=== PATIENT | male | born 1930 | race Native Hawaiian/Other Pacific Islander ===

== ENCOUNTER 2017-02-15 09:34 | Outpatient (CLI) | payer OTHER ==
[~2017-02-15 09:34] MED LIST: PREVACID30 MG PO; TAMS0.4C PO
[2017-02-15 10:23] LABS: PLATELET COUNT 155 K/uL (142-355)
[2017-02-15 11:25] LABS: POTASSIUM 3.6 mmol/L (3.6-5.2); SODIUM 140 mmol/L (136-145)
[2017-02-16] MEDS ORDERED: CVS OMEPRAZOLE20 MG OR (04:39)
[2017-02-16] MEDS ORDERED: CARDURA4 MG PO (04:40)
[2017-02-16] MEDS ORDERED: FINASTERIDE5 MG PO (04:40)
[2017-02-16] MEDS ORDERED: ASA LOW DOSE81 MG OR (04:41)
== END 2017-02-15 19:48 | disposition home or self-care (01) ==
LOC: LABW 09:34
PROVIDERS: Internal Medicine
DX: R53.83 Other fatigue (principal)
CPT/HCPCS: 36415; 80053; 81000; 83735; 84439; 84443; 85027; 87086; 87088

== ENCOUNTER 2017-02-15 10:00 | Observation (INO) | payer OTHER ==
[2017-02-15] VITALS (7 sets, daily range): BP systolic 131–169; BP diastolic 73–82; TEMP 97.7–98.4; Ht 190.5 cm; Wt 91.8 kg
[~2017-02-15] VITALS: Ht 190.5 cm; Wt 91.8 kg
--- NOTE | 2017-02-15 15:48 | NUR ---
Pt. ADMITTED TO ROOM [address] ZAMUDIO. C/O WEAKNESS AND EDEMA LEG. Pt. HAS DRYNESS SKIN ON LEGS AND LONG TOES NAIL.
[2017-02-15 19:22] LABS: PLATELET COUNT 176 K/uL (142-355)
[2017-02-15 19:46] LABS: POTASSIUM 3.7 mmol/L (3.6-5.2); SODIUM 138 mmol/L (136-145)
[2017-02-16] VITALS: BP 142/65; TEMP 97.8
[2017-02-16 04:00] VITALS: BP 143/65; TEMP 97.2
[2017-02-16] MEDS ORDERED: CVS OMEPRAZOLE20 MG OR (04:39)
[2017-02-16] MEDS ORDERED: CARDURA4 MG PO (04:40)
[2017-02-16] MEDS ORDERED: FINASTERIDE5 MG PO (04:40)
[2017-02-16] MEDS ORDERED: ASA LOW DOSE81 MG OR (04:41)
[2017-02-16 05:15] LABS: PLATELET COUNT 162 K/uL (142-355)
[2017-02-16 05:31] LABS: POTASSIUM 3.1 mmol/L (3.6-5.2); SODIUM 137 mmol/L (136-145)
[2017-02-16 08:00] VITALS: BP 156/72; TEMP 97.9
[2017-02-16 12:00] VITALS: BP 134/66; TEMP 97.6
[2017-02-16 16:00] VITALS: BP 120/70; TEMP 97.4
[2017-02-16 20:00] VITALS: BP 149/70; TEMP 97.3
[2017-02-17] VITALS: BP 146/73; TEMP 97.8
[2017-02-17 04:00] VITALS: BP 152/74; TEMP 97.5
[2017-02-17 04:50] LABS: PLATELET COUNT 158 K/uL (142-355)
[2017-02-17 05:01] LABS: POTASSIUM 3.2 mmol/L (3.6-5.2); SODIUM 136 mmol/L (136-145)
[2017-02-17 08:00] VITALS: BP 149/75; TEMP 97.9
--- NOTE | 2017-02-17 13:00 | NUR ---
IV D/C'd. NO REDNESS OR EDEMA OBSERVED. DISCHARGE INSTRUCTIONS SIGNED AND GIVEN. Pt. EXIT OUT OF FRONT ENTRANCE VIA W/C.
== END 2017-02-17 13:00 | disposition home or self-care (01) ==
LOC: ED 10:00 → MED/SURG 13:44
PROVIDERS: Internal Medicine; ADMIT Specialist
DX: I50.23 Acute on chronic systolic (congestive) heart failure (principal); R53.1 Weakness; R62.7 Adult failure to thrive; R60.9 Edema, unspecified; E87.6 Hypokalemia; R53.83 Other fatigue
CPT/HCPCS: 36415; 36600; 80053; 81000; 82550; 82553; 82805; 83605; 83735; 83880; 84100; 84439; 84443; 84484; 85027; 85379; 85610; 85730; 87086; 87088; 93005; 93306; 96372; 96374; 96375; 99220; 99284; G0378; J1644; J1720; J1940; J2405

== ENCOUNTER 2017-02-21 14:29 | Outpatient (CLI) | payer OTHER ==
[~2017-02-21 14:29] MED LIST changes: +ASA LOW DOSE81 MG OR; +CARDURA4 MG PO; +CVS OMEPRAZOLE20 MG OR; +FINASTERIDE5 MG PO
== END 2017-02-21 15:29 | disposition home or self-care (01) ==
LOC: RAD 14:29
DX: R29.898 Other symptoms and signs involving the musculoskeletal system (principal)

== ENCOUNTER 2017-09-24 15:11 | Outpatient (CLI) | payer OTHER ==
[2017-09-24 15:56] LABS: PLATELET COUNT 145 K/uL (142-355)
[2017-09-24 16:05] LABS: SODIUM 135 mmol/L (136-145)
== END 2017-09-24 16:15 | disposition home or self-care (01) ==
LOC: LABW 15:11
PROVIDERS: Internal Medicine Hematology & Oncology
DX: C15.5 Malignant neoplasm of lower third of esophagus (principal)
CPT/HCPCS: 36415; 80053; 85027

== ENCOUNTER 2018-05-03 13:43 | Outpatient (CLI) | payer OTHER ==
[2018-05-03 14:38] LABS: PLATELET COUNT 158 K/uL (142-355)
[2018-05-03 15:18] LABS: POTASSIUM 4.5 mmol/L (3.6-5.2)
== END 2018-05-03 23:18 | disposition home or self-care (01) ==
LOC: LAB 13:43
PROVIDERS: Internal Medicine
DX: G20 Parkinson's disease (principal); Z79.899 Other long term (current) drug therapy; Z51.81 Encounter for therapeutic drug level monitoring
CPT/HCPCS: 80053; 80061; 84443; 85027

== ENCOUNTER 2018-06-11 13:09 | Outpatient (CLI) | payer OTHER | END 2018-06-11 19:35 | disposition home or self-care (01) | LOC: LAB 13:09 | DX: L02.212 Cutaneous abscess of back [any part, except buttock and flank] (principal) | CPT/HCPCS: 87070; 87205 ==